=== PATIENT | female | born 1960 | race American Indian/Alaskan Native ===

== ENCOUNTER 2022-04-20 08:15 | Emergency (ER) | payer MEDICAID ==
[~2022-04-20] VITALS: Ht 170.2 cm; Wt 122.7 kg
[2022-04-20] MEDS ORDERED: epiNEPHrine 1 mg/ml inj IM STA (08:48)
[2022-04-20] MEDS ORDERED: predniSONE 20 mg tablet PO ONE (08:50)
[2022-04-20] MEDS ORDERED: PRED20TA PO (09:45)
[2022-04-20 09:57] VITALS: BP 139/66
== END 2022-04-20 10:03 | disposition home or self-care (01) ==
LOC: ER 08:15
DX: T78.40XA Allergy, unspecified, initial encounter (principal); Z98.890 Other specified postprocedural states; Z79.899 Other long term (current) drug therapy; X58.XXXA Exposure to other specified factors, initial encounter
CPT/HCPCS: 96372; 99283; J0171; J7512